=== PATIENT | female | born 1940 | race Caucasian/White ===

== ENCOUNTER → 2019-07-20 | Outpatient (CLI) | payer OTHER ==
--- NOTE | 2019-07-21 16:06 | PATH ---
[facility] [address] [place] [address] PATHOLOGY RPT PROCEDURE Name: KARLEYMELLisa BALL Room #: [facility] Starr.#: [id number] Admission: 07/20/19 Date of : 44 Discharge: Report #: [id number] Path Case #: [id number] [facility] Accession Number: [id number] . 01 Material submitted: . stomach - RANDOM GASTRIC BIOPSIES TO R/O H. PYLORI . 01 Clinical history: . Pre-OP DX: Anemia, melena, post-OP gastritis Post-OP DX: Gastritis . 02 Diagnosis: Gastric mucosa, random gastric to rule out H. pylori, endoscopic biopsy: - Mild chronic active gastritis. - Negative for intestinal metaplasia or atrophy. - Negative for Helicobacter pylori (properly controlled immunohistochemical stain performed). (IUV/db; 07/21/2019) LBQ 07/21/2019 1206 Local . 02 Electronically signed: . Keshia Rodriguez MD, Pathologist NPI- [id number] . 01 Gross description: . Received in formalin labeled "eMl Hernandez, random gastric BX's to rule out H. pylori," are 4 segments of levine soft tissue measuring 1.3 x 1.0 x 0.3 cm in aggregate dimensions and ranging from 0.4 to 0.7 cm in maximum dimension. The specimen is submitted entirely in cassette A1. (TSD; 07/20/2019) TOB/TOB 07/20/2019 2304 Local . 02 Pathologist provided ICD-10: K29.50 . 02 CPT . 848604, [id number] Specimen Comment: A courtesy copy of this report has been sent to [phone] Specimen Comment: Report sent to Performed at: [address] [id number] MD Cristóbal Tejada MD Phone: [phone] Performed at: [address] [id number] MD Keshia Rodriguez MD Phone: [phone]
== END | disposition home or self-care (01) ==
LOC: GI 09:09
DX: K29.50 Unspecified chronic gastritis without bleeding (principal); K22.2 Esophageal obstruction; K31.89 Other diseases of stomach and duodenum; K44.9 Diaphragmatic hernia without obstruction or gangrene; I25.2 Old myocardial infarction; I10 Essential (primary) hypertension; I25.5 Ischemic cardiomyopathy; I25.10 Atherosclerotic heart disease of native coronary artery without angina pectoris; K21.9 Gastro-esophageal reflux disease without esophagitis; I48.91 Unspecified atrial fibrillation; E78.5 Hyperlipidemia, unspecified; Z98.42 Cataract extraction status, left eye; Z98.41 Cataract extraction status, right eye; Z98.890 Other specified postprocedural states; Z79.899 Other long term (current) drug therapy; Z95.810 Presence of automatic (implantable) cardiac defibrillator; Z79.01 Long term (current) use of anticoagulants; Z82.49 Family history of ischemic heart disease and other diseases of the circulatory system
CPT/HCPCS: 62110; 62900